=== PATIENT | male | born 1995 | race Caucasian/White ===

== ENCOUNTER 2019-07-23 13:39 | Emergency (ER) | payer SELFPAY ==
[~2019-07-23] VITALS: Ht 185.4 cm; Wt 108.0 kg
--- NOTE | 2019-07-23 13:42 | NUR ---
PT AMBULATED TO BED 08.
[2019-07-23 13:45] VITALS: BP 128/68
--- NOTE | 2019-07-23 13:50 | NUR ---
23/M c/o left upper chest pain for the past 2 days. Patient denies any medical hx. Denies any drug use or alcohol use. Denies use of energy drinks. Pt reports pain worse with movement or deep inspiration. Denies any cough. Denies any other symptoms. Denies any injury or trauma. No signs of respiratory distress. Pt awake, alert x4 speaking in full clear sentences. Pt c/o 8/10 pain. Friend at bedside.
--- NOTE | 2019-07-23 13:54 | NUR ---
Patient being evaluated by Dr. Costa at bedside.
[2019-07-23] MEDS ORDERED: IBUPROFEN 800 MG TAB PO ONE (13:55)
--- NOTE | 2019-07-23 14:00 | NUR ---
PER ERMD, EKG NOT NEEDED
[2019-07-23 14:28] VITALS: BP 134/77
== END 2019-07-23 14:30 | disposition home or self-care (01) ==
LOC: MED 13:39
DX: M94.0 Chondrocostal junction syndrome [Tietze] (principal)
CPT/HCPCS: 71045; 99283